=== PATIENT | female | born 1995 | race Caucasian/White ===

== ENCOUNTER 2020-08-18 14:12 | Emergency (ER) | payer MEDICAID, SELFPAY ==
--- NOTE | ~2020-08-18 | CT_ITS ---
EXAMINATION: CT HEAD WITHOUT CONTRAST CLINICAL INFORMATION: Headache, hypertension COMPARISON: None TECHNIQUE: Contiguous axial imaging was performed from the skull base to vertex without intravenous administration of contrast. Additional 2-D coronal and sagittal reformatted images are generated on the CT workstation and uploaded to PACS. This CT examination was performed using dose optimization techniques as appropriate, variously including the following: *Automated exposure control *Adjustment of mA and/or kV according to patient size (this includes techniques or standardized protocols for targeted exams where dose is matched to indication/reason for exam; i.e. extremities or head) *Use of iterative reconstruction technique DLP: 604 mGy-cm FINDINGS: There is no intracranial hemorrhage, hematoma, or extra-axial fluid collection. The ventricles are normal in size. There is no hydrocephalus, edema, or mass effect. The franks-white matter differentiation appears symmetric. There is no visible acute territorial infarct or mass lesion. The calvarium appears intact. There is no pneumocephalus or orbital emphysema. The visualized sinuses and middle ears and mastoid air cells show no significant mucosal thickening. There are no air-fluid levels. CT/CT head/brain wo con IMPRESSION: Normal noncontrast CT head.
[2020-08-18 14:25] VITALS: BP 176/119; PULSE 75; RESP 16; O2SAT 99; BMI 25.2
[2020-08-18 15:03] VITALS: BP 172/116; PULSE 70; RESP 16; O2SAT 99
--- NOTE | 2020-08-18 15:41 | ECG_ITS ---
Test Reason : NAUSEA Blood Pressure : / mmHG Vent. Rate : 067 BPM Atrial Rate : 067 BPM P-R Int : 180 ms QRS Dur : 086 ms QT Int : 420 ms P-R-T Axes : 045 049 028 degrees QTc Int : 443 ms Normal sinus rhythm Normal ECG No previous ECGs available Referred By: Yessy Dimas Electronically Signed By:JAKE HUERTA
[2020-08-18] MEDS: Metoclopramide HCl 10 MG/2 ML VIAL IVPUSH (15:57)
[2020-08-18] MEDS: diphenhydrAMINE HCL 50 MG/ML VIAL 25 MG IVPUSH (15:57)
--- NOTE | 2020-08-18 15:57 | ED.HA ---
HPI - Headache General Chief Complaint: Headache Stated Complaint: HTN 185/125 Time Seen by Provider: 08/18/20 15:04 Source: patient Mode of arrival: ambulatory Limitations: no limitations History of Present Illness HPI Narrative: 24-year-old female with a past medical history of pcos, hld, depression, hypertension on 100 mg of p.o. labetalol daily here with complaints of 2 days of generalized headache, dizziness, photophobia, phonophobia. She tells me she was seen today in urgent care and was noted to have a high blood pressure and was referred to the emergency department for further evaluation. She did forget to take her blood pressure medication this morning. She does not check her blood pressure and so she does not know her normal blood pressure is. She has never been seen by cardiology clinical nurse specialist. She denies any chest pain, shortness of breath, abdominal pain, vomiting, nausea or lower leg swelling. Related Data Allergies Allergy/AdvReac Type Severity Reaction Status Date / Time sulfamethoxazole Allergy Hives Verified 08/18/20 14:32 [From Bactrim] trimethoprim [From Bactrim] Allergy Hives Verified 08/18/20 14:32 Review of Systems Review of Systems: Yes all other systems are reviewed and are negative Constitutional: Constitutional: Reports no additional constitutional complaints, Denies body ache(s), Denies chills, Denies fever(s), Reports headache(s) and Denies weakness Eyes: Eyes: Reports no additional eye complaints, Denies change in vision and Reports photophobia Comments: Photophobia, phonophobia ENT: Reports system reviewed and no additional complaints, except as documented, Reports dizziness, Reports headache(s), Denies nasal congestion, Denies nasal discharge and Denies neck pain Cardiovascular: Cardiovascular: Reports no additional cardiovascular complaints, Denies chest pain, Denies leg edema and Denies dyspnea Respiratory: Respiratory: Reports no additional respiratory complaints, Denies cough and Denies dyspnea Gastrointestinal: Gastrointestinal: Reports no additional gastrointestinal complaints, Denies abdominal pain, Denies diarrhea, Denies nausea and Denies vomiting Genitourinary: Genitourinary: Reports no additional female genitourinary complaints and Denies urinary incontinence Musculoskeletal: Musculoskeletal: Reports no additional musculoskeletal complaints, Denies back pain, Denies arthralgias, Denies joint swelling, Denies neck pain, Denies numbness and Denies tingling Integumentary/Breasts: Skin/Breast: Reports system reviewed and no additional complaints, except as docu and Denies rash Neurologic: Reports system reviewed and no additional complaints, except as documented, Denies Abnormal speech present, Reports dizziness, Reports headache(s), Denies numbness, Denies tingling and Denies weakness PMFSH Past Medical History Attestation statement: The following information was validated with the patient. Source: old records reviewed and nursing notes reviewed Medical History Depression Hypercholesteremia Hypertension PCOS (polycystic ovarian syndrome) Social History Social History Advance Directives: Yes Advance Directives Information Provided: Yes Advance Directives on File: No Patient : No Physical Exam Vital Signs: Vital Signs: Last Vital Signs Pulse 71 08/18/20 17:29 Resp 16 08/18/20 17:29 BP 152/103 H 08/18/20 17:29 Pulse Ox 99 08/18/20 17:29 Body Mass Index 25.2 Const: General: cooperative, healthy appearing, comfortable and no acute distress Orientation/consciousness: patient oriented x3 Limitations: no limitations HENMT: Head: Yes normal to inspection Ears: hearing grossly normal bilaterally and TM's normal bilaterally General nose exam: Normal external nose present Face and sinus: Yes normal facial exam Mouth: Normal oral and palatal mucosa present Throat: Yes posterior oropharynx normal, Yes tonsils normal and Yes uvula midline Eyes: General: appearance normal, both eyes and all related structures Visual Brooks: normal visual brooks by confrontation Alignment and Position: alignment normal Periorbital: periorbital findings normal Eyelids: Yes eyelids normal Conjunctivae: conjunctivae normal Sclerae: sclerae normal Corneas: corneas normal Pupils: Equal, round and reactive pupils present EOM: EOMs intact bilaterally Direct Ophthalmoscopy: normal light reflex, no papilledema, anterior chamber normal and photophobia Neck: Neck: Yes normal visual inspection Chest: Chest palpation & inspection: normal inspection of the chest Resp: Effort & Inspection: normal respiratory effort Auscultation: clear to auscultation bilaterally Cardio: Rate: regular rate Rhythm: regular rhythm Peripheral pulses: Peripheral pulses 2+ throughout GI: Inspection: Yes normal to inspection Palpation (GI): Soft to palpation and nontender Auscultation: normal bowel sounds Back/Spine/Pelvis: Thoracic/Lumbar Spine: thoracic and lumbar spine normal to inspection Skin: General skin exam: no rashes or lesions noted Neuro: General: patient oriented x3, no focal motor deficits and normal sensation to monofilament Cranial nerves: Yes CN's II-XII intact bilaterally, Yes Equal, round and reactive pupils present, Yes Bilaterally intact EOM present, Yes Nystagmus not present, Yes Normal facial strength present, Yes Midline tongue present and Yes Normal gag reflex present Cognition (Neuro): normal cognition Speech: No Abnormal speech present Gait exam (Neuro): Normal gait present Motor exam (neuro): 5/5 motor strength present throughout Sensory Exam: Normal double simultaneous stimulation for sensation Extrem: General: Yes normal to inspection, Yes no pedal edema and Yes no calf tenderness Course Course Course Narrative: 24-year-old female here with 2 days of generalized headache, dizziness, photophobia, phonophobia. Seen at Urgent Care noted to have high blood pressure and was referred to the emergency department for further evaluation. She denies any history of migraines. She did not take her blood pressure medications this morning and has a longstanding history of hypertension taking labetalol 100 mg daily. She has normal neurological exam. Will check CT head, labs, EKG, UA. Will dose patient with her home labetalol and given Reglan and Benadryl for headache 1714-imaging negative. Labs show no evidence of renal impairment. Blood pressure is now 150/100. Pain is much improved. Likely migraine, less likely hypertensive crisis as patients blood pressure improved with her normal daily medication. I did discuss with the patient that she should follow-up with her primary care doctor and continue to monitor her blood pressures at home. We discussed avoiding any migraine triggers. Reviewed worrisome signs and symptoms and when to return to the emergency department. Comfortable discharge home. MDM - Headache MDM Narrative Medical decision making narrative: Hypertensive crisis Differential Diagnosis Differential diagnosis: Likely migraine, tension headache and subarachnoid hemorrhage Medical Records Attestation: I reviewed the patient's medical records. Lab Data Attestation: I reviewed the patient's lab results. Result diagrams: 08/18/20 15:56 08/18/20 15:56 Labs: Lab Results 08/18/20 08/18/20 08/18/20 Range/Units 15:56 15:56 15:56 WBC 10.2 (4.8-10.8) X10*3/uL RBC 4.96 (4.20-5.50) X10*6/uL Hgb 14.5 (12.0-16.0) g/dl Hct 42.8 (37-47) % MCV 86.3 (80-98) fL MCH 29.2 (27.0-33.0) pg MCHC 33.9 (31.0-35.0) g/dl RDW 11.8 (11.0-16.0) % Plt Count 307 (160-400) X10*3/uL MPV 10.7 (9.4-12.3) fL Immature Gran % (Auto) 0.3 (0.0-0.4) % Neut % (Auto) 67.9 (45-73) % Lymph % (Auto) 20.6 (20-40) % [place] % (Auto) 8.7 (2-11) % Eos % (Auto) 1.8 (0-4) % Baso % (Auto) 0.7 (0-2) % Lymph # (Auto) 2.1 (1.2-4.9) X10*3/uL [place] # (Auto) 0.9 (0.1-1.2) X10*3/uL Eos # (Auto) 0.2 (0.0-0.4) X10*3/uL Baso # (Auto) 0.1 (0.0-0.2) X10*3/uL Abs Immat Gran (auto) 0.03 (0.00-0.03) X10*3/uL Absolute Neuts (auto) 6.9 (2.0-8.3) X10*3/uL Absolute Nucleated RBC 0.000 (0.0-0.012) X10*3/uL Nucleated RBC % (auto) 0.0 (0.0-0.2) /100WBC Sodium 140 (135-145) mmol/L Potassium 4.8 (3.3-5.1) mmol/L Chloride 106 (96-108) mmol/L Carbon Dioxide 22 (22-29) mmol/L Anion Gap 17 (12-20) BUN 6 L (9-16) mg/dL Creatinine 0.88 (0.5-1.4) mg/dL Estim Creat Clear Calc 92.6 Estimated GFR > 60 Random Glucose 91 (60-115) mg/dL Calcium 9.9 (8.4-10.2) mg/dL Magnesium 1.7 (1.6-2.6) mg/dL Total Bilirubin 1.5 H (0.0-1.0) mg/dL Direct Bilirubin 0.4 (0.0-0.5) mg/dL AST 25 (5-31) U/L ALT 16 (0-31) U/L Alkaline Phosphatase 84 (39-117) U/L Troponin I High Sens < 3.5 (<3.5-17.0) ng/L Total Protein 7.7 (6.5-8.0) g/dL Albumin 4.5 (3.5-5.0) g/dL Urine Color Urine Appearance Urine pH (5.0-8.0) Ur Specific [place] (1.005-1.025) Urine Protein (NEG-TRACE) MG/DL Urine Glucose (UA) (NEG) MG/DL Urine Ketones (NEG) MG/DL Urine Blood (NEG) Urine Nitrite (NEG) Ur Leukocyte Esterase (NEG) 08/18/20 Range/Units 16:29 WBC (4.8-10.8) X10*3/uL RBC (4.20-5.50) X10*6/uL Hgb (12.0-16.0) g/dl Hct (37-47) % MCV (80-98) fL MCH (27.0-33.0) pg MCHC (31.0-35.0) g/dl RDW (11.0-16.0) % Plt Count (160-400) X10*3/uL MPV (9.4-12.3) fL Immature Gran % (Auto) (0.0-0.4) % Neut % (Auto) (45-73) % Lymph % (Auto) (20-40) % [place] % (Auto) (2-11) % Eos % (Auto) (0-4) % Baso % (Auto) (0-2) % Lymph # (Auto) (1.2-4.9) X10*3/uL [place] # (Auto) (0.1-1.2) X10*3/uL Eos # (Auto) (0.0-0.4) X10*3/uL Baso # (Auto) (0.0-0.2) X10*3/uL Abs Immat Gran (auto) (0.00-0.03) X10*3/uL Absolute Neuts (auto) (2.0-8.3) X10*3/uL Absolute Nucleated RBC (0.0-0.012) X10*3/uL Nucleated RBC % (auto) (0.0-0.2) /100WBC Sodium (135-145) mmol/L Potassium (3.3-5.1) mmol/L Chloride (96-108) mmol/L Carbon Dioxide (22-29) mmol/L Anion Gap (12-20) BUN (9-16) mg/dL Creatinine (0.5-1.4) mg/dL Estim Creat Clear Calc Estimated GFR Random Glucose (60-115) mg/dL Calcium (8.4-10.2) mg/dL Magnesium (1.6-2.6) mg/dL Total Bilirubin (0.0-1.0) mg/dL Direct Bilirubin (0.0-0.5) mg/dL AST (5-31) U/L ALT (0-31) U/L Alkaline Phosphatase (39-117) U/L Troponin I High Sens (<3.5-17.0) ng/L Total Protein (6.5-8.0) g/dL Albumin (3.5-5.0) g/dL Urine Color YELLOW Urine Appearance HAZY Urine pH 6.0 (5.0-8.0) Ur Specific [place] 1.020 (1.005-1.025) Urine Protein TRACE (NEG-TRACE) MG/DL Urine Glucose (UA) NEG (NEG) MG/DL Urine Ketones 15 (NEG) MG/DL Urine Blood NEG (NEG) Urine Nitrite NEG (NEG) Ur Leukocyte Esterase NEG (NEG) Imaging Data CT scan - head: Attestation: I personally reviewed and interpreted this imaging study as follows: Radiologist's impression: FINDINGS: There is no intracranial hemorrhage, hematoma, or extra-axial fluid collection. The ventricles are normal in size. There is no hydrocephalus, edema, or mass effect. The franks-white matter differentiation appears symmetric. There is no visible acute territorial infarct or mass lesion. The calvarium appears intact. There is no pneumocephalus or orbital emphysema. The visualized sinuses and middle ears and mastoid air cells show no significant mucosal thickening. There are no air-fluid levels. CT/CT head/brain wo con IMPRESSION: Normal noncontrast CT head. ECG Data Attestation: I personally reviewed and interpreted this ECG as follows: ECG interpretation date: 08/18/20 ECG interpretation time: 16:23 Interpretation: Normal sinus rhythm with a rate of 67, normal [place], normal QRS, normal QT Discharge Plan Discharge Clinical Impression: Migraine, Hypertension Patient Disposition: Home, Self-Care Instructions: Migraine Headache (ED), Hypertension (ED) Additional Instructions: Avoid migraine triggers Get plenty of rest, drink fluids Follow-up with your PCP and nephrology Continue labetalol daily Referrals: Baudilio Hills MD [Physician] - 2 days Physician,Unknown [Primary Care Provider] - 2 days Stand Alone Forms: Work/School Release Interventions: ED Discharge Assessment Last Done: 08/18/20 17:51 Discharge Date/Time: 08/18/20 17:51
[2020-08-18 15:59] VITALS: BP 154/104; PULSE 65
[2020-08-18] MEDS: Labetalol HCL 100 MG TABLET PO (15:59)
[2020-08-18 16:09] LABS: MANUAL DIFF FLAG NO
[2020-08-18 16:10] LABS: Basophils Absolute Auto 0.1 X10*3/uL (0.0-0.2); Basophils Percent Auto 0.7 % (0-2); Eosinophils Absolute Auto 0.2 X10*3/uL (0.0-0.4); Eosinophils Percent Auto 1.8 % (0-4); Hematocrit 42.8 % (37-47); Hemoglobin 14.5 g/dl (12.0-16.0); Imm Gran Abs Auto 0.03 X10*3/uL (0.00-0.03); Imm Gran Pct Auto 0.3 % (0.0-0.4); Lymphocytes Absolute Auto 2.1 X10*3/uL (1.2-4.9); Lymphocytes Percent Auto 20.6 % (20-40); Mean Corpuscular HGB Conc 33.9 g/dl (31.0-35.0); Mean Corpuscular Hemoglobin 29.2 pg (27.0-33.0); Mean Corpuscular Volume 86.3 fL (80-98); Mean Platelet Volume 10.7 fL (9.4-12.3); Monocytes Absolute Auto 0.9 X10*3/uL (0.1-1.2); Monocytes Percent Auto 8.7 % (2-11); Neutrophils Absolute Auto 6.9 X10*3/uL (2.0-8.3); Neutrophils Percent Auto 67.9 % (45-73); Platelet Count 307 X10*3/uL (160-400); Red Blood Count 4.96 X10*6/uL (4.20-5.50); Red Cell Distribution Width 11.8 % (11.0-16.0); White Blood Count 10.2 X10*3/uL (4.8-10.8)
[2020-08-18 16:38] LABS: Troponin-I High Sensitivity < 3.5 ng/L (<3.5-17.0)
[2020-08-18 16:43] LABS: Glucose Urine UA NEG (NEG); Leukocyte Esterase Urine NEG (NEG); Nitrite Urine NEG (NEG); Urine Blood NEG (NEG); Urine Ketones 15 MG/DL (NEG); Urine Protein TRACE MG/DL (NEG-TRACE)
[2020-08-18 16:47] LABS: Alanine Aminotransferase 16 U/L (0-31); Albumin Level 4.5 g/dL (3.5-5.0); Alkaline Phosphatase 84 U/L (39-117); Anion Gap 17 (12-20); Aspartate Amino Transferase 25 U/L (5-31); Bilirubin Direct 0.4 mg/dL (0.0-0.5); Bilirubin Total 1.5 mg/dL (0.0-1.0); Blood Urea Nitrogen 6 mg/dL (9-16); Calcium 9.9 mg/dL (8.4-10.2); Carbon Dioxide 22 mmol/L (22-29); Chloride 106 mmol/L (96-108); Creatinine Clr Calc Pharmacy 92.6; Estimated Glomerular Filt Rate > 60; Glucose Random 91 mg/dL (60-115); Magnesium 1.7 mg/dL (1.6-2.6); Potassium 4.8 mmol/L (3.3-5.1); Sodium 140 mmol/L (135-145); Total Protein 7.7 g/dL (6.5-8.0)
[2020-08-18 16:53] LABS: Appearance Urine HAZY; Color Urine YELLOW
[2020-08-18] MEDS: Ketorolac Tromethamine 30 MG/ML VIAL IVPUSH (17:27)
[2020-08-18 17:29] VITALS: BP 152/103; PULSE 71; RESP 16; O2SAT 99
== END 2020-08-18 17:51 | disposition home or self-care (01) ==
PROVIDERS: Nurse Practitioner Family; Emergency Provider Emergency Medicine
DX: G43.909 Migraine, unspecified, not intractable, without status migrainosus (principal); I10 Essential (primary) hypertension; Z79.899 Other long term (current) drug therapy
CPT/HCPCS: 36415; 70450; 80048; 80076; 81003; 83735; 84484; 85025; 93005; 96361; 96365; 96375; 99284; J1200; J1885; J2765

== ENCOUNTER 2020-08-22 18:14 | Emergency (ER) | payer MEDICAID, SELFPAY ==
[2020-08-22 19:45] VITALS: BP 179/128; PULSE 86; RESP 16; TEMP 37.1; O2SAT 95; BMI 24.3
== END 2020-08-22 21:39 | disposition left against medical advice (07) ==
PROVIDERS: Emergency Provider Emergency Medicine
DX: G43.909 Migraine, unspecified, not intractable, without status migrainosus (principal)
CPT/HCPCS: 99281; 99282

== ENCOUNTER 2024-12-11 17:57 | Emergency (ER) | payer BC, SELFPAY ==
--- NOTE | 2024-12-11 | ECG_ITS ---
Test Reason : chest pain Blood Pressure : */* mmHG Vent. Rate : 93 BPM Atrial Rate : 93 BPM P-R Int : 160 ms QRS Dur : 84 ms QT Int : 366 ms P-R-T Axes : 31 17 37 degrees QTcB Int : 455 ms Normal sinus rhythm Normal ECG When compared with ECG of 18-Aug-2020 16:23, No significant change was found Referred By: Generic ED Physician Electronically Signed By: JAKE HUERTA
--- NOTE | ~2024-12-11 | XR_ITS ---
CLINICAL HISTORY: cp 1 view chest x-ray Comparison: None provided Findings: Lungs are clear without acute infiltrates. No pneumothorax. Heart size normal. No acute bony abnormalities. Impression: No acute processes This document has been electronically signed by: Minh Oropeza MD on 12/11/2024 20:15:51
--- NOTE | ~2024-12-11 | CT_ITS ---
CLINICAL HISTORY: abdominal pain CT abdomen and pelvis with contrast Comparison: None provided Findings: Lung bases are clear. No acute bony abnormalities. Fatty infiltration of the liver without focal abnormality. Pancreas, Spleen and adrenal glands unremarkable. Gallbladder is within normal limits. Multifocal left renal scarring noted. No significant focal renal abnormalities. No renal stones or hydronephrosis. Abdominal aorta is normal in caliber. No free fluid or adenopathy in the pelvis. No diverticulitis. Appendix not identified. Uterus normal size. No adnexal abnormality. Impression: No acute process This document has been electronically signed by: Minh Oropeza MD on 12/12/2024 00:36:03
[2024-12-11 18:15] VITALS: BP 121/82; PULSE 104; RESP 18; TEMP 36.8; O2SAT 94; BMI 31.0
--- NOTE | 2024-12-11 18:16 | ED.ABDPAIN ---
HPI - Abdominal Pain General Chief Complaint: Abdominal Pain Stated Complaint: chest pain/palpitations/nausous/vomiting/ Time Seen by Provider: 12/11/24 20:59 Source: patient Mode of arrival: ambulatory Limitations: no limitations History of Present Illness ED Provider: Dr. Mathew HPI narrative: This is a 29-year-old female history of hypertension hyperlipidemia presented hospital today for nausea vomiting abdominal pain. Patient stated she has not had a bowel movement since Friday. She is also complaining of palpitation with this chest pain. She is complaining of dizziness as well. No diarrhea. Patient stated she normally takes senna for constipation improves however this time it is not working. Patient is complaining of right upper quadrant pain. She stated she has dark substance coming out of her emesis. Related Data Previous Rx's ?Medication ?Instructions ?Recorded magnesium citrate 300 ml PO DAILY PRN constipation 12/12/24 #296 mL omeprazole 20 mg capsule,delayed 20 mg PO DAILY 30 days #30 caps 12/12/24 release ondansetron 4 mg disintegrating 4 mg PO Q8H PRN nausea and 12/12/24 tablet vomiting #14 tabs Allergies Allergy/AdvReac Type Severity Reaction Status Date / Time sulfamethoxazole (From Allergy Hives Verified 12/11/24 18:16 Bactrim) trimethoprim (From Bactrim) Allergy Hives Verified 12/11/24 18:16 Review of Systems Review of Systems Pertinent review of systems as mentioned in HPI. All other system otherwise negative. [facility] Past Medical History [facility] Narrative: Hypertension hyperlipidemia Medical History Depression Hypercholesteremia Hypertension PCOS (polycystic ovarian syndrome) Social History Social History Smoked in Last 30 Days: No Use of substances other than those prescribed or required for medical reasons: Yes Substance Use Type: Marijuana Advance Directives: No Advance Directives Information Provided: Yes Do you have a plan to hurt others: No Plan Patient : No Physical Exam ED Exam Exam: General: Pleasant, no distress, interacting appropriately Head: Normacephalic, atraumatic ENT: oral mucosa moist, neck supple, no tracheal deviation Cardiovascular: Tachycardic rate, regular rhythm, no murmurs, rubbing, gallops Respiratory: CTAB, no wheeze, rales, rhonchi Gastrointestinal: Soft, non distended, right upper quadrant tenderness on palpation Extremities: No limb pain or swelling, no calf tenderness Neurological: Awake and alert, no facial droop noted Skin: Warm and dry Psychiatric: Appropriate mood and thoughts Vital Signs: Vital Signs - 24 hr 12/11/24 18:15 12/11/24 21:03 12/12/24 00:10 Temperature 98.2 F 97.5 F Pulse Rate 104 H 101 H 92 Respiratory Rate 18 15 Blood Pressure 121/82 135/89 129/70 Pulse Oximetry 94 96 99 Oxygen Delivery Method Room Air Room Air Room Air BMI result Body Mass Index 31.0 Course Course Course Narrative: This is a Rapid Medical Exam performed in triage by Nessa Hodge PA-C. Full HPI, ROS and PE to be performed by primary ED provider. 29 yo F presenting to the ED c/o nausea, vomiting, right sided abdominal pain, chest pain, palpitations, shakiness x 1.5wks ago. Admits to similar episodes in the past PE: emesis bag in hand. abdomen soft & nontender Plan: EKG, Labs, UA, CXR Medical Decision Making Medical Decision Making MDM Narrative: This is a 29-year-old female presented hospital today for evaluation of right upper quadrant pain nausea vomiting palpitations We will plan to start patient on IV fluid, IV Reglan will be given to patient for her symptoms. We will obtain abdomen of ultrasound to rule out cholecystitis. IV Pepcid will be given to the patient as well. UA will be obtained to rule out UTI. Patient does have a white count leukocytosis of 11. And tachycardia. I do not think this is sepsis. I suspect this is secondary to hypovolemia. We will plan to obtain a CT imaging. Patient's CT imaging is negative. I did give patient additional IV Zofran for nausea control and additional IV fluid. Patient has no sign of ischemic cardiac problem at this time. I suspect this is likely gastritis in nature. GI cocktail and Maalox given with good improvement of her symptoms. I did give patient IV Pepcid as well. Plan to discharge patient with a 30 day course of omeprazole. Zofran will be prescribed to the patient. Patient will follow up with her primary care doctor. She agrees and understands this plan all questions were addressed. Differential Diagnosis Differential Diagnoses: The differential diagnosis associated with the presentation includes Cholecystitis, gastritis, colitis, gastroenteritis Lab Data MDM Lab Attestation statement: I reviewed the patient's lab results. 12/11/24 18:29 12/11/24 18:29 Labs: Lab Results 12/11/24 12/12/24 Range/Units 18:29 00:00 WBC 11.4 H (4.8-10.8) X10*3/uL RBC 5.78 H (4.20-5.50) X10*6/uL Hgb 17.8 H (12.0-16.0) g/dl Hct 50.5 H (37.0-47.0) % MCV 87.4 (80.0-98.0) fL MCH 30.8 (27.0-33.0) pg MCHC 35.2 H (31.0-35.0) g/dl RDW 11.9 (11.0-16.0) % Plt Count 354 (160-400) X10*3/uL MPV 10.6 (9.4-12.3) fL Immature Gran % (Auto) 0.3 (0.0-0.4) % Neut % (Auto) 67.2 (45-73) % Lymph % (Auto) 22.7 (20-40) % [place] % (Auto) 8.7 (2-11) % Eos % (Auto) 0.3 (0-4) % Baso % (Auto) 0.8 (0-2) % Lymph # (Auto) 2.6 (1.2-4.9) X10*3/uL [place] # (Auto) 1.0 (0.1-1.2) X10*3/uL Eos # (Auto) 0.0 (0.0-0.4) X10*3/uL Baso # (Auto) 0.1 (0.0-0.2) X10*3/uL Abs Immat Gran (auto) 0.04 H (0.00-0.03) X10*3/uL Absolute Neuts (auto) 7.7 (2.0-8.3) x10*3/uL Absolute Nucleated RBC 0.000 (0.0-0.012) X10*3/uL Nucleated RBC % (auto) 0.0 (0.0-0.2) /100WBC Sodium 141 (135-145) mmol/L Potassium 4.3 (3.3-5.1) mmol/L Chloride 105 (96-108) mmol/L Carbon Dioxide 22 (22-29) mmol/L Anion Gap 18 (12-20) BUN 9 (9-16) mg/dL Creatinine 0.94 (0.5-1.4) mg/dL Estim Creat Clear Calc 91.5 Estimated GFR > 60 Random Glucose 110 (60-115) mg/dL Calcium 9.5 (8.4-10.2) mg/dL Magnesium 1.7 (1.6-2.6) mg/dL Total Bilirubin 0.8 (0.0-1.0) mg/dL Direct Bilirubin 0.2 (0.0-0.5) mg/dL AST 37 H (5-31) U/L ALT 81 H (0-31) U/L Alkaline Phosphatase 106 (39-117) U/L Troponin I High Sens < 2.7 (<3.5-17.0) ng/L Total Protein 8.6 H (6.5-8.0) g/dL Albumin 5.2 H (3.5-5.0) g/dL Lipase 28 (8-78) U/L TSH 0.80 (0.32-4.0) uIU/mL Beta HCG, Quant < 2 mIU/mL Urine Color Dark Yellow Urine Appearance Clear Urine pH 7.0 (5.0-9.0) Ur Specific [place] >= 1.030 H (1.005-1.025) Urine Protein 300 (3+) H (Neg-Trace) mg/dL Urine Glucose (UA) Negative (Negative) mg/dL Urine Ketones 15 (Negative) mg/dL Urine Blood Negative (Negative) Urine Nitrite Negative (Negative) Ur Leukocyte Esterase Negative (Negative) Urine RBC 0-2 (0-2) /HPF Urine WBC 0-5 (0-5) /HPF Ur Squamous Epith Cells 0-2 (0-2) /HPF Urine Bacteria Trace (None Seen) Hyaline Casts 3-5 (0-2) /LPF Urine Test NEGATIVE (NEGATIVE) Independent Interpretation I performed an independent interpretation of an: EKG and CT Scan Radiology Impression Discussion of test interpretation with radiology: I have reviewed the radiologist's reading. Medications Administered Discontinued Medications Generic Name Dose Route Start Last Admin Trade Name Ariana PRN Reason Stop Dose Admin Al Hydroxide/Mg Hydroxide 30 ml 12/12/24 00:37 12/12/24 00:55 Magnesium Hydrox/Alum Hydrox 30 Ml Oral.Susp PO 12/12/24 00:38 30 ml ONCE ONE Administration Famotidine 20 mg 12/11/24 23:08 12/11/24 23:29 Famotidine/Pf 20 Mg/2 Ml Vial IVPUSH 12/11/24 23:09 20 mg ONCE ONE Administration Sodium Chloride 1,000 mls @ 999 mls/hr 12/11/24 21:15 12/12/24 00:10 Ns IV 12/11/24 22:15 Infused .Q1H1M ELEN Infusion Sodium Chloride 1,000 mls @ 999 mls/hr 12/11/24 23:45 12/12/24 00:55 Ns IV 12/12/24 00:45 Infused .Q1H1M ELEN Infusion Iohexol 85 ml 12/11/24 23:41 12/11/24 23:41 Iohexol 350 Mg/Ml 100 Ml Infus..Btl IV 12/11/24 23:42 85 ml ONCE ONE Administration Lidocaine HCl 15 ml 12/12/24 00:37 12/12/24 00:55 Lidocaine Hcl Viscous 2 % 15 Ml Solution MUCOUS MEM 12/12/24 00:38 15 ml ONCE ONE Administration Metoclopramide HCl 5 mg 12/11/24 21:14 12/11/24 21:34 Metoclopramide Hcl 10 Mg/2 Ml Vial IV 12/11/24 21:15 5 mg ONCE ONE Administration Ondansetron HCl 4 mg 12/11/24 18:33 12/11/24 18:36 Ondansetron Odt 4 Mg Tab.Rapdis TRANSLINGU 12/11/24 18:34 4 mg ONCE ONE Administration Ondansetron HCl 4 mg 12/11/24 23:07 12/11/24 23:29 Ondansetron Hcl 4 Mg/2 Ml Vial IVPUSH 12/11/24 23:08 4 mg ONCE ONE Administration Discharge Plan Discharge Clinical Impression: Gastritis Qualifiers: Gastritis type: unspecified gastritis Chronicity: acute Gastritis bleeding: without bleeding Qualified Code(s): K29.00 - Acute gastritis without bleeding Patient Disposition: Home, Self-Care Prescriptions: New ondansetron 4 mg tablet,disintegrating 4 mg PO Q8H PRN (Reason: nausea and vomiting) Qty: 14 0RF omeprazole 20 mg capsule,delayed release(DR/EC) 20 mg PO DAILY 30 Days Qty: 30 0RF magnesium citrate Solution 300 ml PO DAILY PRN (Reason: constipation) Qty: 296 0RF Print Language: Haitian
[2024-12-11 18:36] LABS: Hematocrit 50.5 % (37.0-47.0); Hemoglobin 17.8 g/dl (12.0-16.0); Imm Gran Abs Auto 0.04 X10*3/uL (0.00-0.03); Imm Gran Pct Auto 0.3 % (0.0-0.4); Lymphocytes Absolute Auto 2.6 X10*3/uL (1.2-4.9); MANUAL DIFF FLAG NO; Mean Corpuscular HGB Conc 35.2 g/dl (31.0-35.0); Mean Corpuscular Hemoglobin 30.8 pg (27.0-33.0); Mean Corpuscular Volume 87.4 fL (80.0-98.0); NRBC Abs Auto 0.000 X10*3/uL (0.0-0.012); NRBC Pct Auto 0.0 /100WBC (0.0-0.2); Platelet Count 354 X10*3/uL (160-400); Red Blood Count 5.78 X10*6/uL (4.20-5.50); White Blood Count 11.4 X10*3/uL (4.8-10.8)
[2024-12-11 20:14] LABS: Alanine Aminotransferase 81 U/L (0-31); Albumin Level 5.2 g/dL (3.5-5.0); Alkaline Phosphatase 106 U/L (39-117); Anion Gap 18 (12-20); Aspartate Amino Transferase 37 U/L (5-31); Blood Urea Nitrogen 9 mg/dL (9-16); Calcium 9.5 mg/dL (8.4-10.2); Carbon Dioxide 22 mmol/L (22-29); Chloride 105 mmol/L (96-108); Creatinine Clr Calc Pharmacy 91.5; Estimated Glomerular Filt Rate > 60; Lipase 28 U/L (8-78); Magnesium 1.7 mg/dL (1.6-2.6); Potassium 4.3 mmol/L (3.3-5.1); Sodium 141 mmol/L (135-145); Total Protein 8.6 g/dL (6.5-8.0)
[2024-12-11 20:22] LABS: Troponin-I High Sensitivity < 2.7 ng/L (<3.5-17.0)
[2024-12-11 21:03] VITALS: BP 135/89; PULSE 101; TEMP 36.4; O2SAT 96
--- OUTSIDE RECORDS SUMMARY | 2024-12-11 21:04 | XMS_ITS | Encounter Summary ---
Author Organization [employer] Address [address] [place] [address] [address] [address] Care Team Providers Care Television Reporter Name Role Phone Malika Brumfield Primary Care Provider [phone] Reason for Visit * Reason Onset Date Comments Med Refill 06/09/2023 Encounter Details Date Type Department Care Team (Late st Contact Info) Description 06/09/2023 Refill [facility] [address] [place] [address] Malika Brumfield FNP [address] [place] [address] Secondary hypertension Social History Tobacco Use Types Packs/Day Years Used Date Smoking Tobacco: Never Smokeless Tobacco: Never Alcohol Use Standard Drinks/Week Comments Yes 0 (1 standard drink = 0.6 oz pur e alcohol) Socially Depression Answer Date Recorded Patient Health Questionnaire-9 Score 10 05/27/2022 Depression Answer Date Recorded Patient Health Questionnaire-2 Score 2 05/27/2022 Comments Unknown Sex and Gender Information Value Date Recorded Sex Assigned at Female 01/17/2022 9:05 AM EST Legal Sex Female 8:39 PM EDT Gender Identity Female 01/17/2022 9:05 AM EST Sexual Orientation Straight 02/20/2022 10 :33 AM EST documented as of this encounter Plan of Treatment Upcoming Encounters Date Type Department Care Team (Late st Contact Info) Description 12/24/2024 10:00 AM EST Office Visit [facility] [address] [place] [address] Malika Brumfield FNP [address] [place] [address] documented as of this encounter Visit Diagnoses Diagnosis Secondary hypertension Other secondary hypertension, unspecified documented in this encounter Additional Health Concerns Assessment Noted Time PHQ-9 Depression Total Score: 10 023 3:47 PM EDT documented as of this encounter Care Teams Television Reporter Relationship Specialty Start Date End Date Malika Brumfield FNP [address] [place] [address] PCP - General Family Medicine 01/22/22 documented as of this encounter
--- OUTSIDE RECORDS SUMMARY | 2024-12-11 21:04 | XMS_ITS | Clinical Summary ---
Author Organization [facility] Address [address] [place] [phone] Phone Care Team Providers Care Residence Hall Director Name Role Phone Malika Brumfield [facility] Primary Care Prov ider Allergies Active Allergy Reactions Criticality Noted Date Comments Sulfamethoxazole-Trimethoprim Hives 2019 Codeine Unknown Medium 04/04/2021 Sulfa (Sulfonamide Antibiotics) 04/12 Medications levothyroxine (SYNTHROID, LEVOTHROID) 50 MCG tablet Take 50 mcg by mouth every morning. Active labetaloL (TRANDATE) 100 MG tablet Take 100 mg by mouth 2 (two) times a day. Active metFORMIN (GLUCOPHAGE) 500 MG tablet Take 1,000 mg by mouth daily. Active medroxyPROGESTER one (PROVERA) 10 MG tablet Take 10 mg by mouth every 30 (thirty) days. Active letrozole (FEMARA) 2.5 mg tablet Take 2.5 mg by mouth daily as needed. On days 3-7 Active Active Problems No known active problems Social History Tobacco Use Types Packs/Day Years Used Date Smoking Tobacco: Never Smokeless Tobacco: Never Alcohol Use Standard Drinks/Week Comments Yes 0 (1 standard drink = 0.6 oz pur e alcohol) 3 per month Education Answer Date Recorded Are you interested in more education? Not on debbie e 06/07/2022 Are you concerned about learning? Not on file 06/07/2022 No 06/07/2022 No 06/07/2022 Digital Access Answer Date Recorded No 07/08/2022 No 07/08/2022 No 07/08/2022 Reliable internet access at home? Not on file 07/08/2022 Device with a working camera? Not on file Comments No Sex and Gender Information Value Date Recorded Sex Assigned at Not on file Legal Sex Female 8:51 PM EDT Gender Identity Not on file Sexual Orientation Not on file Last Filed Vital Signs Vital Sign Reading Time Taken Comments Blood Pressure 135/93 12/15/2019 1:36 PM EST Pulse 89 12/15/2019 11:00 AM EST Temperature 36.3 C (97.3 F) 12/15/2019 1:16 PM EST Respiratory Rate 14 12/15/2019 1:36 PM EST Oxygen Saturation 99% 12/15/2019 1:36 PM EST Inhaled Oxygen Concentration - - Weight 84.8 kg (187 lb) 05/09/2022 4:11 PM EDT Height 162.6 cm (5' 4 ) 05/09/2022 4:11 PM EDT Body Mass Index 32.1 05/09/2022 4:11 PM EDT Plan of Treatment Health Maintenance Due Date Last Done Comments DEPRESSION SCREENING 2007 HEPATITIS C SCREENING 12/02/2013 HIV ONE-TIME SCREENING (18-6 5 YEARS) 12/02/2013 PAP SMEAR 12/02/2016 TSH LEVEL 10/28/2020 10/29/2019 INFLUENZA VACCINE (#1) 2024 , 10/27/2019, 03/03/2017 CREATININE LEVEL 09/30/2024 10/01/2023, 10/29/2019 COVID-19 VACCINE (3 - 2024-2 6 season) 2024 02/16/2021, 07/11/2020 Adult Td,Tdap Booster 01/09/2030 01/10/2020 , 04/18/2008 MENINGOCOCCAL VACCINES (ACWY) Completed 06/13/2014 SMOKING STATUS SCREENING (On ce After 26 Yrs) Completed 05/22/2022 HEPATITIS A VACCINES Aged Out No long er eligible based on patient's age to complete this topic HIB VACCINES Aged Out No longer eligi ble based on patient's age to complete this topic MENINGOCOCCAL VACCINES (B) Aged Out N o longer eligible based on patient's age to complete this topic PNEUMOCOCCAL VACCINES (0-49 years) Aged Out No longer eligible b ased on patient's age to complete this topic Medical Devices Not on file Procedures Procedure Name Priority Date/Time Associated Diagnosis Comments RENAL PANEL Routine 10/01/2023 11:45 AM EDT Essential hypertension, malignant TSH Routine 10/29/2019 9:22 AM EDT Abdominal pain, unspecified abdominal location from Last 3 Months or Most Recently Relevant to Health Maintenance Results * Renal panel (10/01/2023 11:45 AM EDT) SODIUM 137 133 - 146 mmol/L [facility] POTASSIUM 4.4 3.3 - 5.1 mmol/L [facility] CHLORIDE 101 96 - 108 mmol/L [facility] CO2 23 21 - 35 mmol/L [facility] GLUCOSE 94 70 - 99 mg/dL [facility] BUN 8 6 - 19 mg/dL [facility] CREATININE 0.90 0.5 - 1.5 mg/dL [facility] CALCIUM 9.9 8.4 - 10.3 mg/dL [facility] PHOSPHORUS 3.3 2.7 - 4.5 mg/dL [facility] ALBUMIN 4.5 3.9 - 4.8 g/dL [facility] EGFR 90 >59 mL/min/1.7 3m2 [facility] Comment:Estimated glomerular filtration rate calculated using the CKD-EPI refit equation. ANION GAP 17 10 - 20 mmol/L [facility] Blood 10/01/2023 11:4 5 AM EDT 10/01/2023 12:02 PM EDT us Bigg Franco MD LAB BLOOD ORDERABLES Final Resul t [facility] [address] [place] [address] * TSH (10/29/2019 9:22 AM EDT) TSH 2.88 0.27 - 4.20 uIU/mL [facility] Blood 10/29/2019 9:22 AM EDT 10/29/2019 9:24 AM EDT us Shavonne Mcgregor PA-C LAB BLOOD ORDERABLES Final Resu lt [facility] [address] [place] [address] from Last 3 Months or Most Recently Relevant to Health Maintenance [place] [address] [place] [address] [place] [address] [place] [address] [place] [address] [place] [address] Care Teams Residence Hall Director Relationship Specialty Start Date End Date Malika Brumfield CNP [address] [place] [address] PCP - General Nurse Practitioner 10/01/23 Additional Source Comments The information contained in this document represents components of the legal health record. It is not the complete legal health record.[facility]
--- OUTSIDE RECORDS SUMMARY | 2024-12-11 21:04 | XMS_ITS | Encounter Summary ---
Author Organization [employer] Address [address] [place] [address] [address], [place] [address] Care Team Providers Care Tightening Machine Operator Name Role Phone Malika Brumfield Primary Care Provider [phone] Encounter Details Date Type Department Care Team (Late st Contact Info) Description 05/18/2023 Orders Only [facility] Information Management [address] [place] [address] Malika Brumfield FNP [address] [place] [address] Social History Tobacco Use Types Packs/Day Years [...] Description 12/24/2024 10:00 AM EST Office Visit [facility] MED[facility] [address] [place] [address] Malika Brumfield FNP [address] [place] [address] documented as of this encounter Procedures Procedure Name Priority Date/Time Associated Diagnosis Comments CBC WITH AUTO DIFFERENTIAL Routine 05/09/2023 10:51 AM EDT XR CHEST 2 VIEWS Routine 05/09/2023 10:5 0 AM EDT ECG 12-LEAD Routine 05/09/2023 10:49 AM EDT documented in this encounter Results * CBC auto differential (05/09/2023 10:51 AM EDT) Blood Venous blood specimen / Unknown [facility] LAB BLOOD ORDERABLES Starr l Result * XR Chest 2 Views (05/09/2023 10:50 AM EDT) Anatomical Region Laterality Modality Chest Radiographic Lexi ging [facility] IMG XR PROCEDURES Final R esult * ECG 12 lead (05/09/2023 10:49 AM EDT) [facility] ECG ORDERABLES Final Res ult documented in this encounter Visit Diagnoses Not on filedocumented in this encounter Additional Health Concerns Assessment Noted Time PHQ-9 Depression Total Score: 10 023 3:47 PM EDT documented as of this encounter Care Teams Tightening Machine Operator Relationship Specialty Start Date End Date Malika Brumfield FNP [address] [place] [id number] PCP - General Family Medicine 01/22/22 documented as of this encounter
--- OUTSIDE RECORDS SUMMARY | 2024-12-11 21:04 | XMS_ITS | Encounter Summary ---
Author Organization [facility] Address [address] [place] [phone] Phone Care Team Providers Care Concrete Finisher Name Role Phone Malika Brumfield CNP Primary Care Prov ider Malika Brumfield CNP Primary Care Prov ider Encounter Details Date Type Department Care Team (Late st Contact Info) Description 10/06/2019 Ancillary Orders Virtual Department [address] [place] [address] Regina Maritnez, JAGDISH [address] [place] [address] Social History Tobacco Use Types Packs/Day Years Used Date Smoking Tobacco: Never Assessed Comments Unknown Sex and Gender Information Value Date Recorded Sex Assigned at Not on file Legal Sex Female 8:51 PM EDT Gender Identity Not on file Sexual Orientation Not on file documented as of this encounter Plan of Treatment Not on file documented as of this encounter Visit Diagnoses Not on filedocumented in this encounter Care Teams Concrete Finisher Relationship Specialty Start Date End Date Malika Brumfield CNP [address] [place] [address] PCP - General Family Medicine 08/10/21 09/30/23 Malika Brumfield CNP [address] [place] [address] PCP - General Nurse Practitioner 10/01/23 documented as of this encounter Additional Source Comments The information contained in this document represents components of the legal health record. It is not the complete legal health record.[facility]
--- OUTSIDE RECORDS SUMMARY | 2024-12-11 21:04 | XMS_ITS | Encounter Summary ---
Author Organization [facility] Address [address] [place] [address] Phone Care Team Providers Care Digital Composer Name Role Phone Malika Brumfield Primary Care Provider [phone] Encounter Details Date Type Department Care Team (Late st Contact Info) Description 10/06/2023 Documentation Only [facility], [address] [place] [address] Kaitlyn Crum [address] [place] [address] Social History Tobacco Use Types Packs/Day Years Used Date Smoking Tobacco: Never Assessed Comments Unknown Sex and Gender Information Value Date Recorded Sex Assigned at Not on file Legal Sex Female 11:57 AM EDT Gender Identity Not on file Sexual Orientation Not on file documented as of this encounter Plan of Treatment Not on file documented as of this encounter Visit Diagnoses Not on filedocumented in this encounter Care Teams Digital Composer Relationship Specialty Start Date End Date Malika Brumfield [address] [place] [id number] PCP - General 09/10/23 documented as of this encounter
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
--- OUTSIDE RECORDS SUMMARY | 2024-12-11 21:04 | XMS_ITS | Encounter Summary ---
Author Organization [facility] Address [address] [place] [address] Phone Care Team Providers Care Quickbooks Bookkeeper Name Role Phone CooperGalileo schulerMalika Mark CNP Primary Care Prov ider Renetta Brumfieldgh Mark MARION Primary Care Prov ider Encounter Details Date Type Department Care Team (Latest Contact Info) Description 10/29/2019 Transcribe Orders [facility] Laboratory [address] [address] Shavonne Mcgregor PA-C [address], [address] [place] [address] [email or web address] Abdominal pain, unspecified abdominal location (Primary Dx) Social History Tobacco Use Types Packs/Day Years Used Date Smoking Tobacco: Never Assessed Comments Unknown Sex and Gender Information Value Date Recorded Sex Assigned at Not on file Legal Sex Female 8:51 PM EDT Gender Identity Not on file Sexual Orientation Not on file documented as of this encounter Plan of Treatment Not on file documented as of this encounter Results * Ova and parasites, stool (11/03/2019 11:10 AM EDT) Special Requests None 11/03/2019 11:11 AM EDT [facility] DIRECT EXAM No parasites found by Trichrome Stain 11/15/2019 12:55 PM EDT [facility] DIRECT EXAM NO PARASITES FOUND BY DIRECT OR CONCENTRATION METHODS 11/15/2019 12:55 PM T [facility] Stool (Stool) 11/03/2019 11: 10 AM EDT 11/03/2019 11:15 AM EDT Shavonne Mcgregor PA-C MICROBIOLOGY - GENERAL ORDERABL ES Final Result Performing Organization Address [facility] Co de Phone Number [address] [address] * Giardia antigen screen (11/03/2019 11:10 AM EDT) Pathologist [facility] GIARDIA ANTIGEN Negative Negative [facility] DPT OF LAB MED AND PAT+ Comment: (NOTE) ADDITIONAL INFORMATION Test Performed by Enzyme Immunoassay. Stool (Stool) 11/03/2019 11: 10 AM EDT 11/03/2019 11:15 AM EDT Shavonne Mcgregor PA-C MICROBIOLOGY - GENERAL ORDERABL ES Final Result Performing Organization Address [facility] Co de Phone Number [facility] DPT OF LAB MED AND PAT+ [address] [place] [address] * Fecal leukocyte examination (11/03/2019 11:10 AM EDT) Special Requests None 11/03/2019 11:11 AM EDT [facility] GRAM STAIN No WBC seen on smear. 11/04/2019 9:49 AM EDT [facility] Stool (Stool) 11/03/2019 11: 10 AM EDT 11/03/2019 11:15 AM EDT Shavonne Mcgregor PA-C MICROBIOLOGY - GENERAL ORDERABL ES Final Result Performing Organization Address [facility] Co de Phone Number [address] [address] * Stool culture (11/03/2019 11:10 AM EDT) Special Requests None 11/03/2019 11:11 AM EDT [facility] Stool Culture NO SALMONELLA, SHIGELLA OR CAMPYLOBACTER ISOLATED 11/04/2019 9:36 AM EDT [facility] Stool (Stool) 11/03/2019 11: 10 AM EDT 11/03/2019 11:15 AM EDT us Shavonne Mcgregor PA-C MICROBIOLOGY - GENERAL ORDERABL ES Final Result Performing Organization Address City/[facility]/ZIP Co de Phone Number [address] [address] * Ova and parasites, stool (11/02/2019 11:10 AM EDT) Special Requests None 11/03/2019 11:11 AM EDT [facility] DIRECT EXAM No parasites found by Trichrome Stain 11/15/2019 12:56 PM EDT [facility] DIRECT EXAM NO PARASITES FOUND BY DIRECT OR CONCENTRATION METHODS 11/15/2019 12:56 PM EDT [facility] Stool (Stool) 11/02/2019 11: 10 AM EDT 11/03/2019 11:14 AM EDT us Shavonne Mcgregor PA-C MICROBIOLOGY - GENERAL ORDERABL ES Final Result Performing Organization Address [facility] Co de Phone Number [address] [address] * Ova and parasites, stool (10/30/2019 11:09 AM EDT) Special Requests None 11/03/2019 11:09 AM EDT [facility] DIRECT EXAM No parasites found by Trichrome Stain 11/15/2019 12:56 PM EDT [facility] DIRECT EXAM NO PARASITES FOUND BY DIRECT OR CONCENTRATION METHODS 11/15/2019 12:56 PM EDT [facility] Stool (Stool) 10/30/2019 11: 09 AM EDT 11/03/2019 11:14 AM EDT us Shavonne Mcgregor PA-C MICROBIOLOGY - GENERAL ORDERABL ES Final Result Performing Organization Address City/[facility]/ZIP Co de Phone Number [address] [address] * CBC (10/29/2019 9:22 AM EDT) WBC 8.93 4.00 - 11.00 K/uL [facility] Comment:Note Reference Range updates to all CBC and Differential results. RBC 4.98 3.72 - 5.30 M/uL [facility] HGB 14.7 11.0 - 15.2 g/dL [facility] Comment:Note updated Referen ce Ranges for all CBC and Differential results. HCT 42.3 31.6 - 44.1 % [facility] PLT 257 140 - 430 K/uL [facility] MCV 84.9 78.0 - 97.0 fL [facility] MCH 29.5 25.0 - 33.0 pg [facility] MCHC 34.8 32.0 - 36.0 g/dL [facility] RDW 11.6 11.0 - 16.0 % [facility] MPV 11.5 8.4 - 12.8 fl [facility] NRBC 0.00 0 /100 WBCs [facility] ABSOLUTE NRBC 0.00 0 K/uL [facility] Blood 10/29/2019 9:22 AM EDT 10/29/2019 9:24 AM EDT us Shavonne Mcgregor PA-C LAB BLOOD ORDERABLES Final Resu lt [facility] [address] [place] [address] * (ABNORMAL) Comprehensive metabolic panel (10/29/2019 9:22 AM EDT) SODIUM 138 133 - 146 mmol/L [facility] POTASSIUM 4.2 3.3 - 5.1 mmol/L [facility] CHLORIDE 103 96 - 108 mmol/L [facility] CO2 24 21 - 35 mmol/L [facility] BUN 10 6 - 19 mg/dL [facility] CREATININE 0.90 0.5 - 1.5 mg/dL [facility] GLUCOSE 102(H) 70 - 99 mg/dL [facility] ALBUMIN 4.8 3.9 - 4.8 g/dL [facility] TOTAL PROTEIN 7.6 6.5 - 8.0 g/dL [facility] CALCIUM 10.2 8.4 - 10.3 mg/dL [facility] ALKALINE PHOSPHATASE 87 39 - 117 U/L [facility] TOTAL BILIRUBIN 0.4 0.0 - 1.2 mg/dL [facility] AST 22 0 - 37 U/L [facility] ALT 17 0 - 40 U/L [facility] GLOBULIN 2.8 1 - 4.8 g/dL [facility] EGFR 90 >59 mL/min/1.7 3m2 [facility] Comment:Estimated glomerular filtration rate calculated using the CKD-EPI equation. ANION GAP 15 10 - 20 mmol/L [facility] Blood 10/29/2019 9:22 AM EDT 10/29/2019 9:24 AM EDT us Shavonne Mcgregor PA-C LAB BLOOD ORDERABLES Final Resu lt Performing Organization Address City/[facility]/ZIP Co de Phone Number [address] [address] * C-Reactive Protein (10/29/2019 9:22 AM EDT) C REACTIVE PROTEIN 2.3 0.0 - 4.0 mg/L [facility] Blood 10/29/2019 9:22 AM EDT 10/29/2019 9:24 AM EDT us Shavonne Mcgregor PA-C LAB BLOOD ORDERABLES Final Resu lt [address] [address] * TSH (10/29/2019 9:22 AM EDT) TSH 2.88 0.27 - 4.20 uIU/mL [facility] Blood 10/29/2019 9:22 AM EDT 10/29/2019 9:24 AM EDT us Shavonne MCKEON-Kenisha LAB BLOOD ORDERABLES Final Resu lt Performing Organization Address City/[facility]/ZIP Co de Phone Number [address] [address] * Immunoglobulin A (10/29/2019 9:22 AM EDT) IgA 244 70 - 400 mg/dL [facility] Blood 10/29/2019 9:22 AM EDT 10/29/2019 9:24 AM EDT us Shavonne Mcgregor PA-C LAB BLOOD ORDERABLES Final Resu lt Performing Organization Address [facility]/ZIP Co de Phone Number [address] [address] documented in this encounter Visit Diagnoses Diagnosis Abdominal pain, unspecified abdominal location- Primary documented in this encounter Care Teams Quickbooks Bookkeeper Relationship Specialty Start Date End Date Malika Brumfield CNP [address] [place] [address] PCP - General Family Medicine 08/10/21 09/30/23 Malika Brumfield CNP [address] [place] [address] PCP - General Nurse Practitioner 10/01/23 documented as of this encounter Additional Source Comments The information contained in this document represents components of the legal health record. It is not the complete legal health record.[facility]
--- OUTSIDE RECORDS SUMMARY | 2024-12-11 21:04 | XMS_ITS | Encounter Summary ---
Author Organization [facility] Address [address] [place] [address] Phone Care Team Providers Care Electric Locomotive Crane Operator Name Role Phone Malika Brumfield Primary Care Provider Encounter Details Date Type Department Care Team (Late st Contact Info) Description 10/01/2023 Documentation Only [facility] [place], [address] [place] [address] Kaitlyn Crum [address] [place] [address] Social History Tobacco Use Types [...] on filedocumented in this encounter Care Teams Electric Locomotive Crane Operator Relationship Specialty Start Date End Date Malika Brumfield [address] [place] [address] PCP - General 09/10/23 documented as of this encounter
--- OUTSIDE RECORDS SUMMARY | 2024-12-11 21:04 | XMS_ITS | Encounter Summary ---
Author Organization [facility] Address [address] [place] [address] Phone Care Team Providers Care Adding Machine Servicer Name Role Phone Malika Brumfield Primary Care Provider [phone] Encounter Details Date Type Department Care Team (Late st Contact Info) Description 10/06/2023 Documentation Only [facility] [place], [address] [place] [place] [address] Kaitlyn Crum [address] [place] [address] Social History Tobacco Use Types [...] on filedocumented in this encounter Care Teams Adding Machine Servicer Relationship Specialty Start Date End Date Malika Brumfield [address] [place] [address] PCP - General 09/10/23 documented as of this encounter
--- OUTSIDE RECORDS SUMMARY | 2024-12-11 21:04 | XMS_ITS | Encounter Summary ---
Author Organization [facility] Address [address] [place] [address] Phone Care Team Providers Care Enterprise Resource Planner Name Role Phone Malika Brumfield Primary Care Provider [phone] Encounter Details Date Type Department Care Team (Late st Contact Info) Description 10/03/2023 Documentation Only [facility] [place], [address] [place] [address] Kaitlyn Crum [address] [place] [address] Social History Tobacco Use Types [...] on filedocumented in this encounter Care Teams Enterprise Resource Planner Relationship Specialty Start Date End Date Malika Brumfield [address] [place] [address] PCP - General 09/10/23 documented as of this encounter
--- OUTSIDE RECORDS SUMMARY | 2024-12-11 21:04 | XMS_ITS | Encounter Summary ---
Author Organization [facility] Address [address] [place] [address] Phone Care Team Providers Care Tank Builder And Erector Name Role Phone Malika Brumfield CNP Primary Care Prov ider Malika Brumfield CNP Primary Care Prov ider Encounter Details Date Type Department Care Team (Late st Contact Info) Description 10/06/2019 Ancillary Orders Virtual Department [address] [place] [address] Regina Martinez, JAGDISH [address] [place] [address] Social History Tobacco Use Types Packs/Day Years [...] on filedocumented in this encounter Care Teams Tank Builder And Erector Relationship Specialty Start Date End Date Malika Brumfield CNP [address] [place] [address] PCP - General Family Medicine 08/10/21 09/30/23 Malika Brumfield CNP [address] [place] [address] PCP - General Nurse Practitioner 10/01/23 documented as of this encounter Additional Source Comments The information contained in this document represents components of the legal health record. It is not the complete legal health record.[facility]
--- OUTSIDE RECORDS SUMMARY | 2024-12-11 21:04 | XMS_ITS | Encounter Summary ---
Author Organization [facility] Address [address] [place] [address] Phone Care Team Providers Care Dining Room Attendant Cafeteria Name Role Phone Malika Brumfield Primary Care Provider [phone] Encounter Details Date Type Department Care Team (Late st Contact Info) Description 10/01/2023 Documentation Only [facility] [place], [address] [place] [address] Kaitlyn Crum [address] [place] [address] Social History Tobacco Use Types [...] on filedocumented in this encounter Care Teams Dining Room Attendant Cafeteria Relationship Specialty Start Date End Date Malika Brumfield [address] [place] [address] PCP - General 09/10/23 documented as of this encounter
--- OUTSIDE RECORDS SUMMARY | 2024-12-11 21:04 | XMS_ITS | Encounter Summary ---
Author Organization [facility] Address [address] [place] [address] Phone Care Team Providers Care Wire Twister Name Role Phone Malika Brumfield CNP Primary Care Prov ider Malika Brumfield CNP Primary Care Prov ider Encounter Details Date Type Department Care Team (Late st Contact Info) Description 12/15/2019 Procedure Pass [facility] Endoscopy Admitting Dept Virtual Department [address] [place] [address] Social History Tobacco Use Types Packs/Day Years Used Date Smoking Tobacco: Never Smokeless Tobacco: Never Alcohol Use Standard Drinks/Week Comments Yes 0 (1 standard drink = 0.6 oz pur e alcohol) 3 per month Comments No Sex and Gender Information Value Date Recorded Sex Assigned at Not on file Legal Sex Female 8:51 PM EDT Gender Identity Not on file Sexual Orientation Not on file documented as of this encounter Plan of Treatment Not on file documented as of this encounter Visit Diagnoses Not on filedocumented in this encounter Care Teams Wire Twister Relationship Specialty Start Date End Date Malika Brumfield CNP [address] [place] [address] PCP - General Family Medicine 08/10/21 09/30/23 Malika Brumfield CNP [address] [place] [address] PCP - General Nurse Practitioner 10/01/23 documented as of this encounter Additional Source Comments The information contained in this document represents components of the legal health record. It is not the complete legal health record.[facility]
--- OUTSIDE RECORDS SUMMARY | 2024-12-11 21:04 | XMS_ITS | Encounter Summary ---
Author Organization [facility] Address [address] [place] [address] Phone Care Team Providers Care Laminated Plastics Assembler And Gluer Name Role Phone Malika Brumfield Primary Care Provider [phone] Encounter Details Date Type Department Care Team (Late st Contact Info) Description 03/26/2024 Documentation Only [facility] [place], [address] [place] [address] Fay Lugo [address] [place] [address] Social History Tobacco Use Types [...] on filedocumented in this encounter Care Teams Laminated Plastics Assembler And Gluer Relationship Specialty Start Date End Date Malika Brumfield [address] [place] [address] PCP - General 09/10/23 documented as of this encounter
--- OUTSIDE RECORDS SUMMARY | 2024-12-11 21:04 | XMS_ITS | Encounter Summary ---
Author Organization [facility] Address [address] [place] [address] Phone Care Team Providers Care Dental Manager Name Role Phone Malika Brumfield CNP Primary Care Prov ider Malika Brumfield CNP Primary Care Prov ider Encounter Details Date Type Department Care Team (Late st Contact Info) Description 10/06/2019 Ancillary Orders Virtual Department [address] [place] [address] Regina Martinez, JAGDISH [address] [place] [address] Social History Tobacco Use Types Packs/Day Years [...] on filedocumented in this encounter Care Teams Dental Manager Relationship Specialty Start Date End Date Malika Brumfield CNP [address] [place] [address] PCP - General Family Medicine 08/10/21 09/30/23 Malika Brumfield CNP [address] [place] [address] PCP - General Nurse Practitioner 10/01/23 documented as of this encounter Additional Source Comments The information contained in this document represents components of the legal health record. It is not the complete legal health record.[facility]
--- OUTSIDE RECORDS SUMMARY | 2024-12-11 21:04 | XMS_ITS | Encounter Summary ---
Author Organization [facility] Address [address] [place] [address] Phone Care Team Providers Care Coal Chemist Name Role Phone Malika Brumfield Primary Care Provider [phone] Encounter Details Date Type Department Care Team (Late st Contact Info) Description 09/29/2023 Documentation Only [facility] [place], [address] [place] [address] Fay Lugo [address] [place] [address] Social History Tobacco Use Types [...] on filedocumented in this encounter Care Teams Coal Chemist Relationship Specialty Start Date End Date Malika Brumfield [address] [place] [address] PCP - General 09/10/23 documented as of this encounter
--- OUTSIDE RECORDS SUMMARY | 2024-12-11 21:04 | XMS_ITS | Encounter Summary ---
Author Organization [facility] Address [address] [place] [address] Phone Care Team Providers Care Fruit Coordinator Name Role Phone Malika Brumfield Primary Care Provider [phone] Encounter Details Date Type Department Care Team (Late st Contact Info) Description 10/06/2023 Documentation Only [facility] [place], [address] [place] [place] [address] Kaitlyn Crum [address] [place] [address] Social History Tobacco Use Types [...] on filedocumented in this encounter Care Teams Fruit Coordinator Relationship Specialty Start Date End Date Malika Brumfield [address] [place] [address] PCP - General 09/10/23 documented as of this encounter
--- OUTSIDE RECORDS SUMMARY | 2024-12-11 21:04 | XMS_ITS | Encounter Summary ---
Author Organization [employer] Address [address] [facility] 7[address] [place] [address] Care Team Providers Care Principal Systems Architect Name Role Phone Malika Brumfield Primary Care Provider [phone] Reason for Visit * Reason Onset Date Comments Arm Pain 12/01/2024 Nausea 12/01/2024 Palpitations 12/01/2024 Chest Pain 12/01/2024 Encounter Details Date Type Department Care Team (Late st Contact Info) Description 12/01/2024 Telephone [facility] MEDICAL [address] [place] [address] Malika Brumfield FNP [address] [place] [address] Arm Pain; Nausea; Palpitations; Chest Pain Social History Tobacco Use Types Packs/Day Years [...] Some college, no degree 11/10/2024 Comments No Sex and Gender Information Value Date Recorded Sex Assigned at Female 01/17/2022 9:05 AM EST Legal Sex Female 8:39 PM EDT Gender Identity Female 01/17/2022 9:05 AM EST Sexual Orientation Straight 02/20/2022 10 :33 AM EST documented as of this encounter Miscellaneous Notes * Telephone Encounter - Lona Duncan LPN - 12/01/2024 2:05 PM EDT Spoke with pt. She is reporting she has a history of heart palpatations/CP and she is currently having a flare-up. Reports it has been going on for a week or so. Has had some N & V and flank pain. Scheduled her for OV tomorrow 12/02 with [place]. I advised pt. If her symptoms worsened or if she experiences any new symptoms she should go to ED. I've dealt with this before. Agreed to ED if warranted. * Telephone Encounter - Kimberly Connolly - 12/01/2024 11:33 AM EDT Patient called Patient has been dealing with a flair up for the past week Patient is currently dealing with the following symptoms Chest pain Palpations Tingling of the right arm Nausea Flank pain No appointments with [facility] this week Patient looking to be seen by her if possible documented in this encounter Plan of Treatment Upcoming Encounters Date Type Department Care Team (Late st Contact Info) Description 12/24/2024 10:00 AM EST Office Visit [facility] [address] [place] [address] Malika Brumfield FNP [address] [place] [address] documented as of this encounter Visit Diagnoses Not on filedocumented in this encounter Additional Health Concerns Assessment Noted Time PHQ-9 Depression Total Score: 5 11/11/19 25 11:19 AM EDT documented as of this encounter Care Teams Principal Systems Architect Relationship Specialty Start Date End Date Malika Brumfield FNP [address] [place] [address] PCP - General Family Medicine 01/22/22 documented as of this encounter
--- OUTSIDE RECORDS SUMMARY | 2024-12-11 21:04 | XMS_ITS | Encounter Summary ---
Author Organization [facility] Address [address] [place] [address] Phone Care Team Providers Care Client Professional Name Role Phone Malika Brumfield CNP Primary Care Prov ider Malika Brumfield CNP Primary Care Prov ider Encounter Details Date Type Department Care Team (Late st Contact Info) Description 05/09/2022 Procedure Pass [address] [place] [address] Social History Tobacco Use Types Packs/Day Years [...] on file documented as of this encounter Last Filed Vital Signs Vital Sign Reading Time Taken Comments Blood Pressure - - Pulse - - Temperature - - Respiratory Rate - - Oxygen Saturation - - Inhaled Oxygen Concentration - - Weight 84.8 kg (187 lb) 05/09/2022 4:11 PM EDT Height 162.6 cm (5' 4 ) 05/09/2022 4:11 PM EDT Body Mass Index 32.1 05/09/2022 4:11 PM EDT documented in this encounter Plan of Treatment Not on file documented as of this encounter Visit Diagnoses Not on filedocumented in this encounter Care Teams Client Professional Relationship Specialty Start Date End Date Malika Brumfield CNP [address] [place] [address] PCP - General Family Medicine 08/10/21 09/30/23 Malika Brumfield CNP [address] [place] [address] PCP - General Nurse Practitioner 10/01/23 documented as of this encounter Additional Source Comments The information contained in this document represents components of the legal health record. It is not the complete legal health record.[facility]
--- OUTSIDE RECORDS SUMMARY | 2024-12-11 21:04 | XMS_ITS | Encounter Summary ---
Author Organization [facility] Address [address] [place] [address] Phone Care Team Providers Care Bridal Service Sales And Management Name Role Phone Unknown, Unknown Primary Care Provider Malika Farias CNP Primary Care Prov ider Malika Brumfield CNP Primary Care Prov ider Encounter Details Date Type Department Care Team (Latest Contact Info) Description 08/20/2019 Transcribe Orders Virtual Department [address] [place] [address] Regina Martinez, JAGDISH [address] [place] [address] Abnormal vaginal bleeding (Primary Dx) Social History Tobacco Use Types [...] documented as of this encounter Results * US PELVIS TRANSABDOMINAL PLUS TRANSVAGINAL (08/23/2019 1:57 PM EDT) Anatomical Region Laterality Modality Pelvis, Uterus/Adnexa Ultrasound 08/23/2019 5:08 PM EDT Impressions 08/23/2019 5:10 PM EDT No significant uterine, endometrial, or right ovarian pathology demonstrated. Left ovary nonvisualized. POS - [id number] Narrative 08/23/2019 5:10 PM EDT COMPARISON: None FINDINGS: Transabdominal and endovaginal scanning was performed. Uterus is within normal limits in size measuring 7.2 x 2.4 x 2.8 cm and displays homogeneous parenchymal echo-texture. Endometrial echocomplex is within normal limits at 2 mm in width. Right ovary is within normal limits in size measuring 2.9 x 2.1 x 2.4 cm. No ovarian mass or significant cyst detected. Right ovarian perfusion is documented on color Doppler imaging. Left ovary could not be visualized on transabdominal or endovaginal technique. No significant free fluid collection demonstrated in the cul-de-sac. Procedure Note Ti Juarez MD - 08/23/2019 COMPARISON: None FINDINGS: Transabdominal and endovaginal scanning was performed. Uterus is withinnormal limits in size measuring 7.2 x 2.4 x 2.8 cm and displayshomogeneous parenchymal echo-texture. Endometrial echocomplex is withinnormal limits at 2 mm in width. Right ovary is within normal limits in size measuring 2.9 x 2.1 x 2.4 cm.No ovarian mass or significant cyst detected. Right ovarian perfusion isdocumented on color Doppler imaging. Left ovary could not be visualized ontransabdominal or endovaginal technique. No significant free fluidcollection demonstrated in the cul-de-sac. IMPRESSION: No significant uterine, endometrial, or right ovarian pathologydemonstrated. Left ovary nonvisualized. POS - [id number] us Regina Martinez SPINDLE SETTER IMG US PELVIS Final Re sult documented in this encounter Visit Diagnoses Diagnosis Abnormal vaginal bleeding- Primary Other specified noninflammatory disorder of vagina Abnormal vaginal bleeding Other specified noninflammatory disorder of vagina documented in this encounter Care Teams Bridal Service Sales And Management Relationship Specialty Start Date End Date Unknown, Unknown, PCP - General 08/20/19 08/22/19 Malika Brumfield CNP [address] [place] [address] PCP - General Family Medicine 08/10/21 09/30/23 Malika Brumfield CNP [address] [place] [address] PCP - General Nurse Practitioner 10/01/23 documented as of this encounter Additional Source Comments The information contained in this document represents components of the legal health record. It is not the complete legal health record.[facility]
--- OUTSIDE RECORDS SUMMARY | 2024-12-11 21:04 | XMS_ITS | Encounter Summary ---
Author Organization [facility] Address [address] [place] [address] Phone Care Team Providers Care Bobtailer Name Role Phone CooperGalileo schulerMalika Mark CNP Primary Care Prov ider Otcaviano Malika Mark MARION Primary Care Prov ider Encounter Details Date Type Department Care Team (Late st Contact Info) Description 10/06/2019 Ancillary Orders Virtual Department [address] [place] [address] Regina Martinez, JAGDISH [address] [place] [address] Abdominal pain, generalized Social History Tobacco Use Types Packs/Day Years Used Date Smoking Tobacco: Never Assessed Comments Unknown Sex and Gender Information Value Date Recorded Sex Assigned at Not on file Legal Sex Female 8:51 PM EDT Gender Identity Not on file Sexual Orientation Not on file documented as of this encounter Plan of Treatment Not on file documented as of this encounter Results * XR Abdomen Series Supine with Decubitus/Erect and Single View Chest (10/06/2019 10:25 AM EDT) Anatomical Region Laterality Modality Abdomen, Chest Computed Radiogr aphy 10/06/2019 1:24 PM EDT Impressions 10/06/2019 1:25 PM EDT No acute cardiopulmonary or intra-abdominal findings. Narrative 10/06/2019 1:25 PM EDT EXAM: XR ABDOMEN SERIES SUPINE WITH DECUBITIS/ERECT AND SINGLE VIEW CHEST COMPARISON: None FINDINGS: Chest: No confluent lung consolidations or lung masses. No pneumothorax or pleural effusion. No pulmonary vascular congestion. Cardiomediastinal silhouette is within normal limits. Osseous structures are grossly intact. Abdomen: Nonobstructive bowel gas pattern. Visualized soft tissue outlines are unremarkable. No evidence of intra-abdominal free air. Mild dextrocurvature of the lumbar spine. Osseous structures appear intact. Procedure Note Aaron Penaloza MD - 10/06/2019 EXAM: XR ABDOMEN SERIES SUPINE WITH DECUBITIS/ERECT AND SINGLE VIEWCHEST COMPARISON: None FINDINGS: Chest: No confluent lung consolidations or lung masses. No pneumothoraxor pleural effusion. No pulmonary vascular congestion. Cardiomediastinalsilhouette is within normal limits. Osseous structures are grosslyintact. Abdomen: Nonobstructive bowel gas pattern. Visualized soft tissue outlinesare unremarkable. No evidence of intra-abdominal free air. Milddextrocurvature of the lumbar spine. Osseous structures appear intact. IMPRESSION: No acute cardiopulmonary or intra-abdominal findings. Regina Martinez CMO IMG XR ABDOMEN Final Re sult documented in this encounter Visit Diagnoses Diagnosis Abdominal pain, generalized Abdominal pain, generalized documented in this encounter Care Teams Bobtailer Relationship Specialty Start Date End Date Malika Brumfield CNP [address] [place] [address] PCP - General Family Medicine 08/10/21 09/30/23 Malika Brumfield CNP [address] [place] [address] PCP - General Nurse Practitioner 10/01/23 documented as of this encounter Additional Source Comments The information contained in this document represents components of the legal health record. It is not the complete legal health record.[facility]
--- OUTSIDE RECORDS SUMMARY | 2024-12-11 21:04 | XMS_ITS | Encounter Summary ---
Author Organization [facility] Address [address] [place] [phone] Phone Care Team Providers Care Nail Making Machine Tender Name Role Phone CooperGalileo schulerMalika Mark CNP Primary Care Prov ider Octaviano Malika Mark MARION Primary Care Prov ider Encounter Details Date Type Department Care Team (Latest Contact Info) Description 10/04/2019 Transcribe Orders Virtual Department [address] [place] [address] Regina Martinez, JAGDISH [address] [place] [address] Abdominal pain, generalized (Primary Dx) Social History Tobacco Use Types [...] as of this encounter Results * US ABDOMEN LIMITED RIGHT UPPER QUADRANT (10/06/2019 10:58 AM EDT) Anatomical Region Laterality Modality Abdomen Ultrasound 10/06/2019 11:1 9 AM EDT Impressions 10/06/2019 11:21 AM EDT Limited study displaying hyperechoic hepatic parenchymal echo-texture suggesting fatty infiltration. No other significant abnormality of the visualized upper abdominal visceral structures. POS [id number] Narrative 10/06/2019 11:21 AM EDT COMPARISON: Current abdominal radiographs FINDINGS: Examination is limited due to patient body habitus and bowel gas. Gallbladder is within normal limits in appearance without evidence of cholelithiasis or wall thickening. Intrahepatic bile ducts are nondilated and the common duct within normal limits at 0.3 cm in diameter. Liver is within normal limits in size and displays a diffusely hyperechoic parenchymal echo-texture suggesting fatty infiltration without focal parenchymal mass or cyst apparent. There appears to be hepatopedal flow in the main portal vein on color Doppler imaging. No ascites seen. There is limited evaluation of the pancreatic body, with the head and tail obscured by overlying bowel gas. No pancreatic mass detected. Right kidney is not hydronephrotic. Visualized upper abdominal aorta and IVC are within normal limits. Procedure Note Ti Juarez MD - 10/06/2019 COMPARISON: Current abdominal radiographs FINDINGS: Examination is limited due to patient body habitus and bowel gas.Gallbladder is within normal limits in appearance without evidence ofcholelithiasis or wall thickening. Intrahepatic bile ducts are nondilatedand the common duct within normal limits at 0.3 cm in diameter. Liver is within normal limits in size and displays a diffusely hyperechoicparenchymal echo-texture suggesting fatty infiltration without focalparenchymal mass or cyst apparent. There appears to be hepatopedal flow inthe main portal vein on color Doppler imaging. No ascites seen. There is limited evaluation of the pancreatic body, with the head and tailobscured by overlying bowel gas. No pancreatic mass detected. Right kidneyis not hydronephrotic. Visualized upper abdominal aorta and IVC are withinnormal limits. IMPRESSION: Limited study displaying hyperechoic hepatic parenchymal echo-texturesuggesting fatty infiltration. No other significant abnormality of thevisualized upper abdominal visceral structures. POS [id number] us Regina Martinez COIN DEALER IMG US ABDOMEN Final Re sult documented in this encounter Visit Diagnoses Diagnosis Abdominal pain, generalized- Primary Abdominal pain, generalized documented in this encounter Care Teams Nail Making Machine Tender Relationship Specialty Start Date End Date Malika Brumfield CNP [address] [place] [address] PCP - General Family Medicine 08/10/21 09/30/23 Malika Brumfield CNP [address] [place] [address] PCP - General Nurse Practitioner 10/01/23 documented as of this encounter Additional Source Comments The information contained in this document represents components of the legal health record. It is not the complete legal health record.[facility]
--- OUTSIDE RECORDS SUMMARY | 2024-12-11 21:04 | XMS_ITS | Encounter Summary ---
Author Organization [facility] Address [address] [place] [address] Phone Care Team Providers Care Registered Nurse Cardiac Telemetry Name Role Phone Malika Brumfield Primary Care Provider [phone] Encounter Details Date Type Department Care Team (Late st Contact Info) Description 10/01/2023 Documentation Only [facility], [address] [place] [address] Kaitlyn Crum [address] [place] [address] Social History Tobacco Use Types [...] on filedocumented in this encounter Care Teams Registered Nurse Cardiac Telemetry Relationship Specialty Start Date End Date Malika Brumfield [address] [place] [id number] PCP - General 09/10/23 documented as of this encounter
--- OUTSIDE RECORDS SUMMARY | 2024-12-11 21:04 | XMS_ITS | Clinical Summary ---
Author Organization [facility] Address [address] [place] [address] [place] [phone] Phone Care Team Providers Care Distillery Miller Name Role Phone Malika Brumfield Primary Care Provider [phone] Allergies Active Allergy Reactions Criticality Noted Date Comments Codeine Other (see comments) Medium 04/04/2021 Sulfa Antibiotics 05/09/2022 Trimethoprim 05/09/2023 Other Reaction(s): MT: puffy Medications amLODIPine (NORVASC) 5 MG tablet Take 5 mg by mouth 10/05/2022 Active escitalopram (LEXAPRO) 20 MG tablet Take 20 mg by mouth 06/22/2021 Active levothyroxine (SYNTHROID, LEVOTHROID) 50 MCG tablet Take 50 mcg by mouth 1 (one) time each day Active propranolol LA (INDERAL LA) 80 MG 24 hr capsule Take 80 mg by mouth 1 (one) time each day Do not crush, chew, or split. 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 Essential hypertension 09/25/2023 Proteinuria 09/25/2023 Immunizations Immunization Administration Dates Next Due HPV, Quadrivalent 09/17/2010 Hepatitis B 09/07/1996,01/07/1996,1995 Influenza, Quadrivalent, With Preservative 03/03 MMR 01/09/2001,03/08/1997 TD Preservative Free 06/13/2014 Tdap 04/18/2008 Varicella 04/18/2008,12/10/1996 Social History Tobacco Use Types Packs/Day Years Used Date Smoking Tobacco: Never Assessed Comments Unknown Sex and Gender Information Value Date Recorded Sex Assigned at Not on file Legal Sex Female 11:57 AM EDT Gender Identity Not on file Sexual Orientation Not on file Plan of Treatment Health Maintenance Due Date Last Done Comments Pneumococcal Vaccine: Peds ( 0 to 5 Years) and At-Risk Patients (6 to 49 Years) (1 of 2 - PCV) 12/02/2014 Influenza Vaccine (#1) 2024 01/06/2023, 2017 Hepatitis B Vaccine Completed 09/13/2022, 09/07/1996, 09/07/1996, Additional history exists Insurance [facility] Care Teams Distillery Miller Relationship Specialty Start Date End Date Malika Brumfield [address] [place] [address] PCP - General 09/10/23
--- OUTSIDE RECORDS SUMMARY | 2024-12-11 21:04 | XMS_ITS | Encounter Summary ---
Author Organization [facility] Address [address] [place] [address] Phone Care Team Providers Care Boot Trimmer Name Role Phone Malika Brumfield Primary Care Provider [phone] Encounter Details Date Type Department Care Team (Late st Contact Info) Description 07/14/2023 Documentation Only [facility] [place], [address] [place] [address] [place], [place] [address] [place] [address] Social History Tobacco Use Types [...] on filedocumented in this encounter Care Teams Boot Trimmer Relationship Specialty Start Date End Date Malika Brumfield [address] [place] [address] PCP - General 09/10/23 documented as of this encounter
--- OUTSIDE RECORDS SUMMARY | 2024-12-11 21:04 | XMS_ITS | Encounter Summary ---
Author Organization [facility] Address [address] [place] [address] Phone Care Team Providers Care Marketing Automation Manager Name Role Phone Malika Brumfield CNP Primary Care Prov ider Malika Brumfield CNP Primary Care Prov ider Encounter Details Date Type Department Care Team (Late st Contact Info) Description 10/06/2019 Ancillary Orders Virtual Department [address] [place] [address] Regina Martinez, JAGDISH [address] [place] [address] Social History Tobacco Use Types Packs/Day Years [...] on filedocumented in this encounter Care Teams Marketing Automation Manager Relationship Specialty Start Date End Date Malika Brumfield CNP [address] [place] [address] PCP - General Family Medicine 08/10/21 09/30/23 Malika Brumfield CNP [address] [place] [address] PCP - General Nurse Practitioner 10/01/23 documented as of this encounter Additional Source Comments The information contained in this document represents components of the legal health record. It is not the complete legal health record.[facility]
[2024-12-11] MEDS: iohexoL 350 MG/ML 100 ML INFUS..BTL 85 ML IV (23:41)
[2024-12-12 00:10] VITALS: BP 129/70; PULSE 92; RESP 15; O2SAT 99
[2024-12-12 00:11] LABS: Appearance Urine Clear; Glucose Urine UA Negative (Negative); PH 7.0 (5.0-9.0); Specific Gravity - Urine >= 1.030 (1.005-1.025); UMIC TRIGGER UACC YES
[2024-12-12 00:12] LABS: UPreg QC Valid YES
[2024-12-12] MEDS: Lidocaine HCl Viscous 2 % 15 ML SOLUTION MUCOUS MEM (00:55)
[2024-12-12] MEDS: Magnesium Hydrox/Alum Hydrox 30 ML ORAL.SUSP PO (00:55)
[2024-12-12 01:18] VITALS: BP 129/70; PULSE 92; RESP 15; TEMP 36.6; O2SAT 99
== END 2024-12-12 01:19 | disposition home or self-care (01) ==
PROVIDERS: Physician Assistant; Emergency Provider Student in an Organized Health Care Education/Training Program
DX: K29.00 Acute gastritis without bleeding (principal); R11.2 Nausea with vomiting, unspecified; R07.89 Other chest pain; R42 Dizziness and giddiness; R10.11 Right upper quadrant pain; R10.23 Pelvic and perineal pain bilateral; R00.0 Tachycardia, unspecified; R00.2 Palpitations; Z79.899 Other long term (current) drug therapy
CPT/HCPCS: 36415; 71045; 74177; 80048; 80076; 81001; 81025; 83690; 83735; 84443; 84484; 84702; 85025; 93005; 96361; 96374; 96375; 99285; J1308; J2405; J2765; Q9967

== ENCOUNTER → 2024-12-11 18:04 | Outpatient (BNV) | payer BC, SELFPAY | PROVIDERS: Emergency Provider Student in an Organized Health Care Education/Training Program; Visit Provider Internal Medicine | DX: R07.9 Chest pain, unspecified (principal) | CPT/HCPCS: 93010 ==

== ENCOUNTER → 2024-12-11 18:19 | Outpatient (BNV) | payer BC, SELFPAY | PROVIDERS: Emergency Provider Student in an Organized Health Care Education/Training Program; Visit Provider Radiology Diagnostic Radiology | DX: R10.9 Unspecified abdominal pain (principal) | CPT/HCPCS: 71045; 74177 ==